=== PATIENT | female | born 1975 | race American Indian/Alaskan Native ===

== ENCOUNTER 2017-02-01 12:59 | Emergency (ER) | payer OTHER ==
[2017-02-01] MEDS ORDERED: MOTRIN PO ONE (19:18)
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
[2017-02-02 05:00] VITALS: BP 126/71
== END 2017-02-01 20:13 | disposition home or self-care (01) ==
LOC: ED 12:59
DX: S39.012A Strain of muscle, fascia and tendon of lower back, initial encounter (principal); S13.4XXA Sprain of ligaments of cervical spine, initial encounter; F17.200 Nicotine dependence, unspecified, uncomplicated; V89.2XXA Person injured in unspecified motor-vehicle accident, traffic, initial encounter; Y93.89 Activity, other specified; Y92.89 Other specified places as the place of occurrence of the external cause; Y99.8 Other external cause status
CPT/HCPCS: 99282